=== PATIENT | female | born 1965 | race Caucasian/White ===

== ENCOUNTER 2021-05-14 10:42 | Emergency (ER) | END 2021-05-14 12:26 | disposition home or self-care (01) | LOC: CSHERS 10:42 | DX: T63.481A Toxic effect of venom of other arthropod, accidental (unintentional), initial encounter (principal); L03.113 Cellulitis of right upper limb; F17.200 Nicotine dependence, unspecified, uncomplicated | CPT/HCPCS: 99283 ==